=== PATIENT | male | born 1935 | race Caucasian/White ===

== ENCOUNTER 2021-02-13 14:10 | Outpatient (CLI) | payer MEDICARE ==
[2021-02-13 15:15] LABS: BASOPHILS # (AUTO) 0.1 X10'3 (0-0.2); BASOPHILS % (AUTO) 1.4 % (0-1); EOSINOPHILS # (AUTO) 0.1 X10'3 (0-0.9); EOSINOPHILS % (AUTO) 1.7 % (0-6); LYMPHOCYTES # (AUTO) 1.5 X10'3 (1.1-4.8); LYMPHOCYTES % (AUTO) 26.3 % (21-51); MEAN CORPUSCULAR HEMOGLOBIN 30.7 PG (27.0-31.0); MEAN CORPUSCULAR HGB CONC 33.9 g/dL (33.0-36.5); MEAN CORPUSCULAR VOLUME 90.3 FL (78-98); MEAN PLATELET VOLUME 6.8 FL (7.4-10.4); MONOCYTES # (AUTO) 0.5 X10'3 (0-0.9); MONOCYTES % (AUTO) 9.6 % (2-12); NEUTROPHILS # (AUTO) 3.5 X10'3 (1.8-7.7); PRE OP HEMATOCRIT 44.9 % (42.0-52.0); PRE OP HEMOGLOBIN 15.2 g/dL (14.0-17.9); PRE OP PLATELET COUNT 233 X10'3 (140-440); RED BLOOD COUNT 4.96 X10'6 (4.70-6.10); RED CELL DISTRIBUTION WIDTH 14.3 % (11.5-14.5)
[2021-02-13] MEDS ORDERED: LISI1TAB51 PO (15:21)
[2021-02-13] MEDS ORDERED: BRESALTEC INH (15:21)
[2021-02-13] MEDS ORDERED: AMLO10TA13 PO (15:21)
[2021-02-13] MEDS ORDERED: NITR0.4T51 SL (15:21)
[2021-02-13] MEDS ORDERED: ISOS20TA15 PO (15:21)
[2021-02-13] MEDS ORDERED: ASPI-10 PO (15:21)
[2021-02-13 15:31] LABS: ALBUMIN 4.2 G/DL (3.4-5.0); ALBUMIN/GLOBULIN RATIO 1.3 (1.1-1.5); ALKALINE PHOSPHATASE 166 IU/L (46-116); BLOOD UREA NITROGEN 11 MG/DL (7-18); CALCIUM 8.5 MG/DL (8.5-10.1); CHLORIDE 103 MMOL/L (99-107); PRE OP ALT 19 U/L (30-65); PRE OP ANION GAP 12 (8-16); PRE OP AST 18 U/L (10-37); PRE OP GLUCOSE 99 MG/DL (70-104); PRE OP POTASSIUM 3.7 MMOL/L (3.4-5.1); PRE OP SODIUM 142 MMOL/L (135-145); TOTAL CARBON DIOXIDE 26.6 MMOL/L (24-32); TOTAL PROTEIN 7.5 G/DL (6.4-8.2); eGFR 71 ML/MIN
== END 2021-02-13 23:59 | disposition home or self-care (01) ==
LOC: PRE-OP 14:10 → EDSTATUS 02-20 07:30
PROVIDERS: ATTEND Surgery
DX: Z01.818 Encounter for other preprocedural examination (principal); J43.9 Emphysema, unspecified; I10 Essential (primary) hypertension; M19.90 Unspecified osteoarthritis, unspecified site; F17.210 Nicotine dependence, cigarettes, uncomplicated; Z20.822 Contact with and (suspected) exposure to COVID-19; Z72.89 Other problems related to lifestyle; Z88.1 Allergy status to other antibiotic agents; Z79.899 Other long term (current) drug therapy
CPT/HCPCS: 36415; 80053; 85025; 93005; U0003; U0005

== ENCOUNTER 2021-05-30 07:53 | Day surgery (SDC) | payer MEDICARE ==
[2021-05-29 10:37] LABS: ALBUMIN 3.6 G/DL (3.4-5.0); ANION GAP 10 (8-16); BLOOD UREA NITROGEN 9 MG/DL (7-18); BUN/CREATININE RATIO 9.3 (5.4-32.0); CALCIUM 8.6 MG/DL (8.5-10.1); CHLORIDE 101 MMOL/L (99-107); CREATININE 0.97 MG/DL (0.60-1.10); GLUCOSE 97 MG/DL (70-104); POTASSIUM 3.8 MMOL/L (3.5-5.1); SODIUM 141 MMOL/L (135-145); TOTAL CARBON DIOXIDE 30.4 MMOL/L (24-32); eGFR 73 ML/MIN
[2021-05-29 10:47] LABS: BASOPHILS % (AUTO) 0.9 % (0-1); EOSINOPHILS # (AUTO) 0.2 X10'3 (0-0.9); HEMOGLOBIN 12.7 g/dl (14.0-17.9); LYMPHOCYTES % (AUTO) 38.1 % (21-51); MEAN CORPUSCULAR HEMOGLOBIN 29.8 PG (27.0-31.0); MEAN CORPUSCULAR HGB CONC 33.5 g/dL (33.0-36.5); MEAN CORPUSCULAR VOLUME 89.1 FL (78-98); MONOCYTES # (AUTO) 0.5 X10'3 (0-0.9); NEUTROPHILS # (AUTO) 2.5 X10'3 (1.8-7.7); PLATELET COUNT 259 X10'3 (140-440); RED BLOOD COUNT 4.27 X10'6 (4.70-6.10); RED CELL DISTRIBUTION WIDTH 15.6 % (11.5-14.5); WHITE BLOOD COUNT 5.2 X10'3 (4.5-11.0)
[~2021-05-30] VITALS: Ht 182.9 cm; Wt 69.6 kg
[2021-05-30] VITALS (18 sets, daily range): BP systolic 104–158; BP diastolic 61–85
[~2021-05-30 07:53] MED LIST: ALBU8HFA PO; ASPI-10 PO; CARCD120C PO; FURO-150 PO; IPRA3AMP9 NEB; ISOS20TA15 PO; LISI5TAB22 PO; NITR0.4T51 SL; POTA10TA37 PO; RIVA20TA PO; SOTA80TA73 PO
[2021-05-30] MEDS ORDERED: atropine 0.1mg/ml 10ml syringe IV ONE (08:20)
[2021-05-30] MEDS ORDERED: morphine 10mg/ml inj. IV ONE (08:20)
[2021-05-30] MEDS ORDERED: amiodarone 150mg/dext, iso-os 100 ML IV ONE (08:20)
[2021-05-30] MEDS ORDERED: LORazepam 0.5 MG tablet PO ONE (08:20)
[2021-05-30] MEDS ORDERED: MIDAZolam 1mg/ml 10ml vial IV ONE (08:20)
[2021-05-30] MEDS ORDERED: diphenhydrAMINE 25mg capsule PO ONE (08:20)
[2021-05-30] MEDS ORDERED: FURO20TA4 PO (08:25)
[2021-05-30] MEDS ORDERED: ROSU10TA28 PO (08:27)
[2021-05-30] MEDS ORDERED: LISI5TAB22 PO (08:38)
[2021-05-30] MEDS ORDERED: DILT120T3 PO (08:38)
[2021-05-30] MEDS ORDERED: ROSU10TA2 PO (08:38)
[2021-05-30] MEDS ORDERED: POTA99TA26 PO (08:38)
[2021-05-30] MEDS ORDERED: ASPI-1071 PO (08:38)
[2021-05-30] MEDS ORDERED: FURO-150 PO (08:42)
[2021-05-30] MEDS ORDERED: ISOS20TA8 PO (08:42)
== END 2021-05-30 13:25 | disposition home or self-care (01) ==
LOC: SSTAY O 07:53
PROVIDERS: ATTEND Internal Medicine Cardiovascular Disease
DX: I48.19 Other persistent atrial fibrillation (principal); I11.0 Hypertensive heart disease with heart failure; I50.30 Unspecified diastolic (congestive) heart failure; E78.5 Hyperlipidemia, unspecified; G47.30 Sleep apnea, unspecified; I27.29 Other secondary pulmonary hypertension; I08.1 Rheumatic disorders of both mitral and tricuspid valves; J44.9 Chronic obstructive pulmonary disease, unspecified; F17.210 Nicotine dependence, cigarettes, uncomplicated; Z88.1 Allergy status to other antibiotic agents; I25.119 Atherosclerotic heart disease of native coronary artery with unspecified angina pectoris; Z79.899 Other long term (current) drug therapy; Z98.41 Cataract extraction status, right eye; Z98.42 Cataract extraction status, left eye; Z98.890 Other specified postprocedural states; Z82.49 Family history of ischemic heart disease and other diseases of the circulatory system
CPT/HCPCS: 36415; 80048; 85025; 85610; 92960; 93005; 94799; J0282; J2250; J2274